=== PATIENT | female | born 1950 | race Caucasian/White ===

== ENCOUNTER 2025-05-18 23:20 | Inpatient (IN) | payer MEDICARE, SELFPAY ==
--- NOTE | 2025-05-18 23:21 | EDNOTE_ITS ---
Neuro Symptoms Deficit-RME/HPI General Chief Complaint: Altered Mental Status Stated Complaint: STROKE Time Seen by Provider: 05/18/25 23:22 Arrival date/time: 05/18/25 23:20 Limitations: no limitations RME / HPI RME / HPI Narrative: Dr. Reed's Main ED Evaluation: 74yo female with a history of COPD, HTN BIBA from [facility] 6 presents to the ED for neurological symptoms. Patient was seen by me immediately upon arrival at 2316. Stroke alert initiated en route at 2313. Per EMS, daughter on scene reported the patient started being altered and having right-sided weakness at 1800 and was unable to answer questions appropriately. EMS denies any falls or injuries. Blood sugar en route was 141. Full ROS is unobtainable due to the patient's AMS. Related Data Allergies Allergy/AdvReac Type Severity Reaction Status Date / Time No Known Allergies Allergy Verified 05/19/25 01:23 Review of Systems Review of Systems ROS Unobtainable: unobtainable due to mental status ED Exam Narrative Physical exam: Initial exam completed while the patient was in ambulance bay. General Limitations: Present no limitations General appearance: Present in no apparent distress, obtunded and other (dissheveled) Head Head exam: Present atraumatic ENT ENT exam: Present normal exam, normal oropharynx and mucous membranes moist Neck Neck exam: Present normal inspection, full ROM and trachea midline Chest Chest inspection: Present normal inspection and symmetric chest wall rise Respiratory Respiratory exam: Present normal lung sounds bilaterally; Absent accessory muscle use Cardiovascular Cardiovascular exam: Present regular rate, normal rhythm and normal heart sounds Abdominal Exam Abdominal exam: Absent distention Neurological Exam Neurological exam: Present other (obtunded) Skin Skin exam: Present warm, dry, intact, normal color and other (vascular changes to the BLE) Course Quality Measures none Orders Category Date Time Status Bedside Blood Glucose NOW Care 05/18/25 23:23 Active Choker Setter NOW Care 05/18/25 23:23 Active Continuous Pulse Oximetry NOW Care 05/18/25 23:23 Completed EKG (ED ONLY) *Do not use* NOW Care 05/18/25 23:23 Completed In and Out Catheter NEEDED Care 05/18/25 23:23 Active Insert IV NOW Care 05/18/25 23:23 Active NIH Stroke Scale now Care 05/18/25 23:23 Active NPO NOW Care 05/18/25 23:23 Active Nurse Swallow Screen x1 Care 05/18/25 23:23 Active Consult to Neurology / Tele-Neurology Routine Cons 05/18/25 23:[address] angio stroke protocol Stat Exams 05/18/25 23:[address] stroke protocol Stat Exams 05/18/25 23:23 Completed EKG (ED Only) Stat Exams 05/18/25 23:23 Draft CBC Stat Lab 05/18/25 23:30 Completed Comprehensive Metabolic Panel Stat Lab 05/18/25 23:30 Completed Drug Screen,Urine Stat Lab 05/18/25 23:48 Completed HCG Titer if Positive Stat Lab 05/18/25 23:30 Completed Magnesium Stat Lab 05/18/25 23:30 Completed Partial Thromboplastin Time Stat Lab 05/18/25 23:30 Completed Prothrombin Time with INR Stat Lab 05/18/25 23:30 Completed Troponin I Stat Lab 05/18/25 23:30 Completed UA, C/S IF [Urinalysis, C/S if Indicated] Stat Lab 05/18/25 23:48 Completed Ondansetron Inj [Zofran Inj] Med 05/18/25 23:22 Pending 4 mg IVP Q4HR PRN Oxygen Delivery NOW RT 05/18/25 23:23 Active Vital Signs Vital signs: Vital Signs Temperature 98.7 F 05/18/25 23:54 Pulse Rate 77 05/18/25 23:54 Respiratory Rate 21 H 05/18/25 23:54 Blood Pressure 168/97 H 05/18/25 23:54 Pulse Oximetry (%) 96 05/18/25 23:54 Oxygen Delivery Method Nasal Cannula 05/18/25 23:54 Oxygen Flow Rate 2 05/18/25 23:54 Neuro Symptoms / Deficit MDM Narrative MDM Narrative:: On re-examination, patient is awake, alert, somewhat disoriented. She is now transferring herself from the rney to the bedside commode. Patient data External records reviewed:: [facility] previous records (Per chart review, patient has no previous ED visits or admissions to this facility.) and EMS form Clinical information provided by:: EMS Social determinants that could affect healthcare access:: none Patient has the following chronic illnesses:: HTN, COPD How is presenting disease/condition affected by chronic disease/condition?: uneffected by Evaluation data The following diagnostics were reviewed and interpreted by me:: lab results, radiology exam(s) and EKG tracing(s) Lab and/or radiology exams considered but not ordered:: none Interpretation Summary: CBC normal, PT/INR normal, PTT 37.2, Sodium 122, Glucose 138, Magnesium normal, Troponin normal, UA negative, UDS positive for opiates, HCG negative. EKG done at 1945, aFib, rate of 73, QTc: 401, no ST elevations or depressions, no previous EKG available for comparison, according to my interpretation. --------- [facility] Report Signed Patient: JOVANI SELLERS Birthday Gorilla. Record#: [id number] Birthdate: 1950 Age/Sex: 74 / F Location: [facility] Attending Dr: Ordering Physician: Zuleima Brito MD Date of Service: 05/18/25 Procedure(s): CT stroke protocol Accession Number(s): [id number] cc: Javier Scott MD; Zuleima Brito MD~ Examination: CT brain head without contrast. 2-D sagittal coronal reconstructions Date and time of exam:May 18, 2025 1125 hours INDICATIONS: Stroke alert, onset focal neurologic deficit today CTDI: vol (mGy):48.2 DLP: (mGycm):901 Technique: Multiple CT axial sections of the brain have been obtained, 5 mm slice thickness. Contrast has not been administered. 2-D sagittal, coronal reconstructions have been obtained Low dose protocols were performed. One or more of the following dose reduction techniques were used; automated exposure control, adjustment of the mA and/or KV according to patient size, use of iterative reconstruction technique. Findings: No significant ventricular enlargement. Intra-axial or extra-axial hemorrhage density is not seen. No mass effect or midline shift Basal cisterns are not remarkable. Fourth ventricle is midline. Cranial vault intact. Impression: Negative for acute hemorrhage, mass effect or midline shift Dictated By: Javier Scott MD Signed By: <Electronically signed by Javier Scott MD in OV> 05/18/25 2329 [place] Preliminary Report Draft Patient: JOVANI SELLERS Birthday Gorilla. Record#: [id number] Birthdate: 1950 Age/Sex: 74 / F Location: [facility] Attending Dr: Ordering Physician: Date of Service: Procedure(s): Accession Number(s): cc: ~ CT angiogram of the head and neck with intravenous contrast (axial sections with sagittal and coronal reformats) May 19, 2025 0008 hours Clinical History: Focal neuro deficit, stroke suspected Comparison: No prior study is available for comparison. Findings: Head: There are atheromatous wall calcifications in the cavernous segments of the bilateral internal carotid arteries causing no significant narrowing.The internal carotid, middle and anterior cerebral arteries are otherwise patent bilaterally. The intracranial vertebral arteries are patent. The vertebrobasilar junction, basilar and posterior cerebral arteries are patent. No evidence of large vessel occlusion, critical stenosis or aneurysm. Neck: The aorta and its branches demonstrate atheromatous calcifications. The aortic arch to the extent visualized as well as the origins of the right brachiocephalic, left common carotid, and left subclavian arteries are patent. There are calcified atheromatous plaques causing moderate stenosis of the proximal segment of the right internal carotid artery, measuring approximately 60% and mild stenosis of the proximal segment of the left internal carotid artery, measuring approximately 30%.The common carotid arteries, carotid bulbs, and external carotid arteries are patent. The origins of the vertebral arteries are unremarkable. The left vertebral artery is dominant. No evidence of vascular occlusion, critical stenosis, dissection or aneurysm. There is a peripherally enhancing hypodense nodule in the isthmus extending towards the right lobe of the thyroid, measuring 1.5 x 1 cm. There is a hypodense nodule with peripheral calcification in the right lobe of the thyroid, measuring 5 mm.The soft tissues of the neck are otherwise unremarkable. There are disc osteophyte complexes at multiple levels, most marked at the C5-C6 level, with associated uncinate hypertrophy and facet arthropathy, causing mild spinal canal narrowing and bilateral moderate to severe neural foraminal stenosis. Impression: Head: No evidence of large vessel occlusion, critical stenosis or aneurysm. Neck: Moderate stenosis of the proximal segment of the right internal carotid artery and mild stenosis of the proximal segment of the left internal carotid artery as described above. No evidence of dissection or aneurysm. Thyroid nodules as described above. Recommend further evaluation with sonography. Other findings as described above. Report Electronically Signed By: Brody Christian 05/19/2025 1:28:50 AM [EST] Medications / Prescriptions Medications or Prescriptions considered but not ordered:: none Medication administrations:: Medication Administration History Ondansetron HCl (Ondansetron Inj 2 Mg/Ml Inj 2 Ml) 4 mg IVP Q4HR PRN PRN Reason: NAUSEA OR VOMITING Stop: 06/17/25 23:21 see above Consultations Consultation(s) initiated? (list below): Yes Consultation #1 (Physician, Specialty, Details): Discussed case with Dr. Dash from teleneurology regarding consultation. Discussed patients ED course, exam findings, labs, and radiology results. Does not feel the patient has right-sided weakness and feels that both of the patient's legs are weak. Recommends working up the patient for metabolic pathology (UTI versus pneumonia). States they will call the daughter, then call me back to let me know if the patient needs CT angio head and neck. Time: 23:42 Consultation #2 (Physician, Specialty, Details): Discussed case with Dr. Dash from teleneurology regarding consultation. States he spoke with the patient's daughter and states the patient normally gets like this when she has a UTI or pneumonia. Despite this, the teleneurologist still recommends getting a CTA and admission for a stroke work-up. Time: 00:00 Consultation #3 (Physician, Specialty, Details): Discussed case with the resident physician, attending Dr. Dove from Hospitalist service regarding admission. Discussed patients ED course, exam findings, labs, and radiology results. The Hospitalist agrees to accept the patient for admission. Time: 01:35 Diagnosis Neuro Differential Diagnosis: cerebrovascular accident and other (electrolyte abnormality, drug use, PE, SIADH, sepsis) Most likely diagnosis given after review of the tests above:: hyponatremia, AMS Admission Indicated Admission indicated?: indicated Admission Request Was there a request for admission?: Yes Admission Attestation Admission request attestation: Discussed case with [] from Hospitalist service regarding admission. Discussed patients ED course, exam findings, labs, and radiology results. The Hospitalist [agrees,declines] to accept the patient for admission. Disposition Plan Disposition Plan: Admit Critical Care Time Critical Care Time Critical Care Time: Yes Total Critical Care Time (min.): 50 Attestation: The high probability of sudden, clinically significant deterioration in the patient?s condition required the highest level of my preparedness to intervene urgently. The services I provided to this patient were to treat and/or prevent clinically significant deterioration. Services included the following: chart data review, reviewing nursing notes and/or old charts, documentation time, data communications software consultant collaboration regarding findings and treatment options, medication orders and management, direct patient care, vital sign assessments and ordering, interpreting and reviewing diagnostic studies and lab tests. Aggregate critical care time includes only time during which I was engaged in work directly related to the patient?s care, as described above, whether at bedside or elsewhere in the Emergency Department. It did not include time spent performing other reported procedures or the services of residents, students, nurses or physician assistants. Discharge Plan Plan Patient Disposition: Admit Acute Care w/in Hospital Patient condition on transfer: Stable Prescriptions/Referrals Referrals: Carmen Harvey MD [Referring Provider] - In 1 week Problem List Clinical Impression: Hyponatremia, Altered mental status, Acute right-sided weakness Patient/Caregiver Discharge Instructions Print Language: Arabic Stand Alone Forms: [facility] Award Info., Patient Portal Info Letter
--- NOTE | 2025-05-18 23:23 | EKG_ITS ---
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
--- NOTE | 2025-05-18 23:23 | XR_ITS ---
Examination: CTA carotids with intravenous contrast CTA brain, head with intravenous contrast. 2-D sagittal, coronal reconstructions. 3-D reconstructions. Exam date and time: May 19, 2025 at 0008 hours INDICATIONS: Stroke alert today, onset focal neurologic deficit CTDI: vol (mGy) 11.3 DLP: (mGycm) 432. Technique: Multiple CTA axial brain, head carotid images post intravenous contrast injection 75 cc, [id number]. 2-D sagittal, coronal reconstructions. 3-D reconstructions, 3-D post processing including vascular maximum intensity projection images. Low dose protocols were performed. One or more of the following dose reduction techniques were used; automated exposure control, adjustment of the mA and/or KV according to patient size, use of iterative reconstruction technique. Findings: Bilateral thyroid nodules Heavy calcification right carotid bifurcation, 90% stenosis proximal right internal carotid artery, sagittal image 94 most severe 16 mm from the carotid bifurcation Significant calcification left carotid bifurcation, 60% stenosis left proximal internal carotid artery beginning 9 mm from the carotid bifurcation Dominant left vertebral artery with no critical stenoses No cerebral large vessel occlusions or thrombus IMPRESSION: 90% stenosis proximal right internal carotid artery. 60% stenosis proximal left internal carotid artery
[2025-05-18 23:25] VITALS: PULSE 74; O2SAT 97
[2025-05-18 23:54] VITALS: BP 168/97; PULSE 71; PULSE 77; RESP 21; TEMP 37.1; O2SAT 96
[2025-05-18 23:54] LABS: Basophils # (Auto) 0.0 Thou/mm3 (0.0-0.2); Basophils % (Auto) 0 % (0-2.5); Eosinophils # (Auto) 0.0 Thou/mm3 (0.0-0.5); Eosinophils % (Auto) 0 % (0-10); Hematocrit 34.5 % (36.0-46.0); Hemoglobin 11.7 g/dL (12.0-16.0); Immature Granulocytes Auto 0.05 Thou/mm3 (0.00-0.00); Lymphocytes # (Auto) 0.9 Thou/mm3 (1.0-4.8); Lymphocytes % (Auto) 11 % (10-50); Mean Corpuscular HGB Conc 33.9 g/dl (31.0-37.0); Mean Corpuscular Hemoglobin 31.5 pg (25.0-35.0); Mean Corpuscular Volume 93 fL (80-100); Monocytes # (Auto) 1.0 Thou/mm3 (0.0-0.8); Monocytes % (Auto) 12 % (0-12); Neutrophils # (Auto) 6.1 Thou/mm3 (1.8-7.7); Neutrophils % (Auto) 76 % (37-80); Nucleated Red Blood Cell # 0.00 Thou/mm3 (0.00-0.00); Nucleated Red Blood Cell % 0 /100 WBC (0); Platelet Count 208 Thou/mm3 (140-440); RDW Standard Deviation 46.4 fL (36.4-46.3); Red Blood Count 3.72 Miln/mm3 (4.00-5.20); White Blood Count 8.1 Thou/mm3 (3.6-11.0)
[2025-05-18 23:54] LABS: Collection Type, Urine Clean Catch
[2025-05-19] VITALS (15 sets, daily range): BP systolic 110–184; BP diastolic 67–103; PULSE 60–82; RESP 14–21; TEMP 36.4–37.2; O2SAT 95–100
--- NOTE | 2025-05-19 00:13 | ESCONSULT_ITS ---
Tele Neuro Consultation Consultation Date 05/19/25 Most Recent Vital Signs Last Vital Signs Temp 98.7 F 05/18/25 23:54 Pulse 71 05/18/25 23:54 Resp 21 H 05/18/25 23:54 BP 168/97 H 05/18/25 23:54 Pulse Ox 96 05/18/25 23:54 O2 Del Method Nasal Cannula 05/18/25 23:54 O2 Flow Rate 2 05/18/25 23:54 Consultation Narrative [facility] Patient Name:???Susan Sargent Date of :???1950 Identification Number:??? Date of Service:???05/18/2025 23:22:25 Diagnosis:?G93.49 - Encephalopathy Multifactorial Impression: ?The patient is 74 yo F with h/o HTN, COPD, afib on eliquis, who presents with progressive lethargy, generalized weakness, altered mental status in the setting of 2 days of productive coughing. She is very hypertensive and was hypoxic as well. On exam, she has drift in all extremities, and is slow to respond, dysoriented. CTH is negative for acute findings. Patient is outside the window for IV thrombolytics. I suspect acute encephalopathy due to infectious or metabolic causes, hypertensive encephalopathy or PRES also on differential. However will obtain stat CTA to rule out LVO. If CTA shows no LVO, will gradual reduce BP. Will hold eliquis pending further workup. Our recommendations are outlined below. Recommendations: ? Stroke/Telemetry Floor ? Neuro Checks (Q4) ? Bedside Swallow Eval ? DVT Prophylaxis ? IV Fluids, Normal Saline ? Head of Bed 30 Degrees ? Euglycemia and Avoid Hyperthermia (PRN Acetaminophen) ? Hold Anticoagulation for Now ?Please f/u CTA to rule out LVO. I will followup CTA results. However, if you receive a report that shows large vessel occlusion please call [facility] for a Dr to Dr camargo so I can help facilitate JOAQUIN consultation. ?If no LVO, then consider MRI brain if no other cause is found for encephalopathy. ?If no LVO, gradual reduction of BP is appropriate to a goal of 15% reduction in BP during the first 24 hours. ?Get WORKUP for TOXIC/METABOLIC/INFECTIOUS causes including UA, CXR, ammonia. Sign Out: ? Discussed with Emergency Department Provider Advanced Imaging: Advanced imaging has been ordered. Results pending. Metrics: Last Known Well: 05/18/2025 18:00:00 Dispatch Time: 05/18/2025 23:22:25 Arrival Time: 05/18/2025 23:20:00 Initial Response Time: 05/18/2025 23:22:25Symptoms: altered mental status. Initial patient interaction: 05/18/2025 23:28:00 NIHSS Assessment Completed: 05/18/2025 23:31:40Patient is not a candidate for Thrombolytic. Thrombolytic Medical Decision: 05/18/2025 23:32:30Patient was not deemed ca ndidate for Thrombolytic because of following reasons: LKW outside 4.[address] Head: I personally reviewed all the CT images that were available to me and it showed: No Acute Hemorrhage or Acute Core Infarct Primary Provider Notified of Diagnostic Impression and Management Plan on: 05/19/2025 00:03:13 History of Present Illness:Patient is a 74 year old Female. Patient was brought by EMS for symptoms of altered mental status. Patient is confused. History obtained per EMS and also per patient's daughter Diane who I spoke to on the phone ([phone]) She has been feeling like she was getting a cold the past couple days, coughing a lot of mucus. This afternoon, she would fall asleep, wake up but her eyes stayed closed and she was talking to family members who were no longer living. At times She could not recognize family, not answering questions. Family said LKW was around 1600. She also would get up and fall due to weakness. EMS said she had reduced cook roast on the R side. She was hypoxic, 80% room air. She has no h/o dementia. She drives and is usually quite active. In the past, She has had kidney infection which caused her to be very confused. She takes metoprolol. Past Medical History: ?Hypertension ?Atrial Fibrillation Other PMH:? COPD unable to obtain due to:?? Patient Is Confused Medications: Anticoagulant use:??Yes?eliquis No Antiplatelet use Reviewed EMR for current medications Allergies:? Reviewed Allergies Unable To Obtain Due To:?Patient Is Confused Social History: Unable To Obtain Due To Patient Status :?Patient Is Confused Family History: Family History Cannot Be Obtained Because:Patient Is Confused ROS :?ROS Cannot Be Obtained Because:? Patient Is Confused Past Surgical History: Past Surgical History Cannot Be Obtained Because: Patient Is Confused There Is No Surgical History Contributory To Today?s Visit Examination: BP(220/97),?Pulse(70),?Blood Glucose(141) 1A: Level of Consciousness - Arouses to minor stimulation?+ 1 1B: Ask Month and Age - 1 Question Right?+ 1 1C: Blink Eyes & Squeeze Hands - Performs Both Tasks?+ 0 2: Test Horizontal Extraocular Movements - Normal?+ 0 3: Test Visual Ulrich - No Visual Loss?+ 0 4: Test Facial Palsy (Use Grimace if Obtunded) - Normal symmetry?+ 0 5A: Test Left Arm Motor Drift - Drift, but doesn't hit bed?+ 1 5B: Test Right Arm Motor Drift - Drift, but doesn't hit bed?+ 1 6A: Test Left Leg Motor Drift - Drift, but doesn't hit bed?+ 1 6B: Test Right Leg Motor Drift - Drift, but doesn't hit bed?+ 1 7: Test Limb Ataxia (FNF/Heel-Luo) - No Ataxia?+ 0 8: Test Sensation - Normal; No sensory loss?+ 0 9: Test Language/Aphasia - Normal; No aphasia?+ 0 10: Test Dysarthria - Normal?+ 0 11: Test Extinction/Inattention - No abnormality?+ 0 NIHSS Score:?6 Pre-Morbid Modified [place] Scale:1 Points = No significant disability despite symptoms; able to carry out all usual duties and activities Spoke with :?Dr Brito This consult was conducted in real time using interactive audio and video [facility]. Patient was informed of the technology being used for this visit and agreed to proceed. Patient located in hospital and provider located at home/office setting. Patient is being evaluated for possible acute neurologic impairment and high probability of imminent or life-threatening deterioration. I spent total of 35 minutes providing care to this patient, including time for face to face visit via telemedicine, review of medical records, imaging studies and discussion of findings with providers, the patient and/or family. Dr Galen Dash [facility] For Inpatient follow-up with [facility] physician please call [facility] at . As we are not an outpatient service for any post hospital discharge needs please contact the hospital for assistance. If you have any questions for the [facility] physicians or need to reconsult for clinical or diagnostic changes please contact us via [facility] at .
[2025-05-19 00:18] LABS: Bilirubin,Urine Negative (Negative); Blood,Urine Negative (Negative); Clarity,Urine Clear (Clear/Hazy); Color,Urine Lt-Yellow (Lt Yel-Yel); Culture Indicated,Urine Not Indicated; Glucose, Urine Negative (Negative); Ketones,Urine Negative (Negative); Leukocyte Esterase,Urine Negative (Negative); Nitrite,Urine Negative (Negative); PH,Urine 6.5 (5.0-7.0); Protein,Urine Trace (Neg - Trace); RBC,Urine 1 /hpf (0-3); Specific Gravity,Urine 1.017 (1.001-1.035); Squamous Epithelial Cell,Urine < 1 /hpf (0-5); Urobilinogen,Urine Negative mg/dL (0.0-1.0); WBC,Urine < 1 /hpf (0-5)
[2025-05-19 00:21] LABS: INR 1.1 (0.9-1.3); Partial Thromboplastin Time 37.2 Seconds (22.0-36.0); Prothrombin Time 11.6 Seconds (9.0-12.2)
[2025-05-19 00:36] LABS: Amphetamine/Methamp Scrn,U Negative (Negative); Barbiturate Screen,Urine Negative (Negative); Benzodiazepines Screen,Urine Negative (Negative); Benzoylecgonine Screen, Ur Negative (Negative); Fentanyl Screen,Urine Negative (Negative); Opiate Screen,Urine Positive (Negative); THC Screen,Urine Negative (Negative)
[2025-05-19 00:38] LABS: Alanine Aminotransferase 12 U/L (10-49); Albumin, Serum 4.1 gm/dL (3.4-4.8); Albumin/Globulin Ratio 2.2 (1.2-2.2); Alkaline Phosphatase 81 U/L (46-116); Anion Gap 4 (7-16); Aspartate Amino Transferase 23 U/L (0-34); BUN/Creatinine Ratio 12 Ratio (12-20); Bilirubin,Total 0.4 mg/dL (0.3-1.2); Blood Urea Nitrogen 11 mg/dL (9-23); Calcium 9.7 mg/dL (8.3-10.6); Calcium (Corrected) 9.7 mg/dL (8.5-10.1); Carbon Dioxide 30.4 mMol/L (20.0-31.0); Chloride 88 mMol/L (98-107); Creatinine (Component) 0.9 mg/dL (0.6-1.3); Globulin 1.9 gm/dL (2.3-3.5); Glucose 138 mg/dL (74-106); Magnesium 1.6 mg/dL (1.6-2.6); Osmolality,Calculated 247 (275-295); Potassium 4.9 mMol/L (3.4-5.1); Sodium 122 mMol/L (136-145); Total Protein 6.0 gm/dL (5.7-8.2); Troponin I 0.044 ng/mL (0.0-0.045); eGFR > 60 See Note
[2025-05-19 00:46] LABS: HCG Titer if Positive Negative
--- NOTE | 2025-05-19 01:29 | PRELIM_ITS ---
CT angiogram of the head and neck with intravenous contrast (axial sections with sagittal and coronal reformats) May 19, 2025 0008 hours Clinical History: Focal neuro deficit, stroke suspected Comparison: No prior study is available for comparison. Findings: Head: There are atheromatous wall calcifications in the cavernous segments of the bilateral internal carotid arteries causing no significant narrowing.The internal carotid, middle and anterior cerebral arteries are otherwise patent bilaterally. The intracranial vertebral arteries are patent. The vertebrobasilar junction, basilar and posterior cerebral arteries are patent. No evidence of large vessel occlusion, critical stenosis or aneurysm. Neck: The aorta and its branches demonstrate atheromatous calcifications. The aortic arch to the extent visualized as well as the origins of the right brachiocephalic, left common carotid, and left subclavian arteries are patent. There are calcified atheromatous plaques causing moderate stenosis of the proximal segment of the right internal carotid artery, measuring approximately 60% and mild stenosis of the proximal segment of the left internal carotid artery, measuring approximately 30%.The common carotid arteries, carotid bulbs, and external carotid arteries are patent. The origins of the vertebral arteries are unremarkable. The left vertebral artery is dominant. No evidence of vascular occlusion, critical stenosis, dissection or aneurysm. There is a peripherally enhancing hypodense nodule in the isthmus extending towards the right lobe of the thyroid, measuring 1.5 x 1 cm. There is a hypodense nodule with peripheral calcification in the right lobe of the thyroid, measuring 5 mm.The soft tissues of the neck are otherwise unremarkable. There are disc osteophyte complexes at multiple levels, most marked at the C5- C6 level, with associated uncinate hypertrophy and facet arthropathy, causing mild spinal canal narrowing and bilateral moderate to severe neural foraminal stenosis. Impression: Head: No evidence of large vessel occlusion, critical stenosis or aneurysm. Neck: Moderate stenosis of the proximal segment of the right internal carotid artery and mild stenosis of the proximal segment of the left internal carotid artery as described above. No evidence of dissection or aneurysm. Thyroid nodules as described above. Recommend further evaluation with sonography. Other findings as described above. Report Electronically Signed By: Brody Christian 05/19/2025 1:28:50 AM [EST]
--- NOTE | 2025-05-19 02:11 | XR_ITS ---
Examination: AP chest single view TECHNIQUE: Portable AP sitting chest single view Date and time: May 19, 2025 0228 hours INDICATIONS: Shortness of breath today. FINDINGS: Normal heart size. No pneumonia or pulmonary edema. The osseous structures are intact IMPRESSION: No active disease
--- NOTE | 2025-05-19 02:15 | ESHP_ITS ---
Documentation for date of: 05/19/25 HPI History of Present Illness Chief complaint: Confusion History of present illness: 74-year-old female with past medical history of atrial fibrillation on flecainide, metoprolol and Eliquis, asthma presenting to the ED from home with confusion which started earlier in the day. Patient states that she was at her usual baseline when earlier in the day she started developing increased confusion. Patient currently lives with his son; however, was staying temporarily with granddaughter and granddaughter's children in a motel due to some social issues (granddaughter in an abusive relationship). Patient also states that for the past week or so she has been having some subjective fevers although no temperature noted. Patient denies any sick contacts, recent travel or any other concerning symptoms. Patient states that she follows up with a neuropsychology service director in [place] but unsure exactly of name at this time. She last took Eliquis earlier in the day and mentions how she has ecchymosis noted throughout her upper and lower extremities. Medical history: As stated above Surgical history: Denies Allergies: NKDA Medications: Flecainide, metoprolol succinate, Eliquis, pending official med rec Family history: Noncontributory Social history: Patient lives in [place] with son, [id number] smoking history, denies any alcohol or illicit drug use. ROS: All 12 systems assessed and the patient denies unless otherwise stated in HPI In the ED, patient presented confused, vitals showed hypertension with 116/97, heart rate 77, respiratory 21, temperature afebrile saturating 96 on 2 L nasal cannula. Pertinent lab findings included WBC 8.1, hemoglobin 11.7 with MCV of 93, sodium 122, potassium 4.9, chloride 88, creatinine 0.9, BUN 11, troponin 0.044, magnesium 1.6, ammonia pending. Urinalysis negative for any signs of infection. U tox positive for opiates. Head CT negative for any acute process, head CTA pending. EKG showed atrial fibrillation with low QRS voltage in precordial leads. Patient will be admitted for acute encephalopathy likely secondary to hyponatremia from possible infectious source versus multifocal neoplastic, medication, tea and toast diet. Exam Vital Signs Temp Pulse Resp BP Pulse Ox O2 Del Method O2 Flow Rate 98.7 F 71 21 H 168/97 H 96 Nasal Cannula 2 05/18/25 23:54 05/18/25 23:54 05/18/25 23:54 05/18/25 23:54 05/18/25 23:54 05/18/25 23:54 05/18/25 23:54 Narrative Exam Physical Exam: GENERAL: Awake, answers questions appropriately, appears stated age, frail- appearing HEENT: NC/AT. Moist mucosa. PERRLA/EOMI. CARDIO: Heart RRR, no obvious murmurs, no JVD. PULM: Productive cough but no visible signs of shortness of breath. Bilateral rhonchi noted on upper lobes GI: Abdomen soft, NT/ND, +BS. SKIN/MSK/EXT: Ecchymosis noted on bilateral extremities. Nonpitting edema on bilateral lower extremities. No wounds/discoloration/rashes/amputations. +Pedal pulses present B/L. NEURO: Oriented x3, Moves extremities x4, CN 2-12 grossly intact, no focal neurological deficits Results: Labs 05/19/25 02:57 05/19/25 02:57 Labs: Short CBC 05/18/25 Range/Units 23:30 WBC 8.1 (3.6-11.0) Thou/mm3 Hgb 11.7 L (12.0-16.0) g/dL Hct 34.5 L (36.0-46.0) % Plt Count 208 (140-440) Thou/mm3 BMP 05/18/25 23:30 Sodium 122 L Potassium 4.9 Chloride 88 L Carbon Dioxide 30.4 BUN 11 Creatinine 0.9 Glucose 138 H Calcium 9.7 Cardiac Enzymes 05/18/25 Range/Units 23:30 Troponin I 0.044 (0.0-0.045) ng/mL Liver Function 05/18/25 Range/Units 23:30 Total Bilirubin 0.4 (0.3-1.2) mg/dL AST 23 (0-34) U/L ALT 12 (10-49) U/L Alkaline Phosphatase 81 (46-116) U/L Albumin 4.1 (3.4-4.8) gm/dL Urine 05/18/25 Range/Units 23:48 Urine Color Lt-Yellow (Lt Yel-Yel) Urine Clarity Clear (Clear/Hazy) Urine pH 6.5 (5.0-7.0) Ur Specific [place] 1.017 (1.001-1.035) Urine Protein Trace (Neg - Trace) Urine Glucose (UA) Negative (Negative) Quality Measures Quality Measures none Advance care planning discussed with:: patient Medications Home Medications and Allergies Allergies Allergy/AdvReac Type Severity Reaction Status Date / Time No Known Allergies Allergy Verified 05/19/25 01:23 Visit Medications Acetaminophen (Acetaminophen 325 Mg Tablet) 650 mg PO Q6H PRN PRN Reason: Pain 1-3 and/or Fever >100.1 Stop: 06/18/25 02:10 Heparin Sodium (Porcine) (Heparin Sod Inj 5000 Unit/Ml Vial) 5,000 unit SC Q12HR NILS Stop: 06/02/25 08:59 Ondansetron HCl (Ondansetron Inj 2 Mg/Ml Inj 2 Ml) 4 mg IVP Q4HR PRN PRN Reason: NAUSEA OR VOMITING Stop: 06/17/25 23:21 Assessment & Plan Plan 74-year-old female with past medical history of atrial fibrillation on flecainide, metoprolol and Eliquis, asthma presenting to the ED from home with confusion which started earlier in the day will be admitted for acute encephalopathy likely secondary to hyponatremia from possible infectious source versus multifocal neoplastic, medication, tea and toast diet. #Acute encephalopathy Differentials include: Stroke/TIA, hyponatremia, seizure less likely, multifocal including infectious source, metabolic As stated above, patient is presenting with confusion ongoing for about 1 day, unsure exact change in mentation Currently on exam, patient is answering questions appropriately and does not have any neurologic deficits as noted above in physical exam In the ED, teleneurology was consulted Ammonia pending. Urinalysis negative for any signs of infection. U tox positive for opiates. Head CT negative for any acute process, head CTA pending. Plan: Teleneurologist consulted, appreciate recommendations CTA head and neck pending, if LVO present to follow-up on recommendations Aspiration precautions Head of bed greater than 30 Temperature control Euglycemic ECHO w/ bubble study If no LVO, then consider MRI brain if no other cause is found for encephalopathy. If no LVO, gradual reduction of BP is appropriate to a goal of 15% reduction in BP during the first 24 hours. #Hyponatremia Possibly symptomatic as noted above, sodium of 122 Differentials include: SIADH, paraneoplastic syndrome, medication induced flecainide, tea and toast diet Patient does state that this has happened to her before in the past Denies any new medications or changes in water intake Plan: Fluid restriction 1800 mL Urine electrolytes Monitor with morning labs #Atrial fibrillation CHADVASc of 2-3 (depending on pending studies) EKG showed atrial fibrillation with low QRS voltage in precordial leads. Patient is on flecainide, metoprolol succinate and Eliquis Plan: Will hold anticoagulation as per teleneurology consultation Will continue flecainide Will hold metoprolol due to blood pressure control as noted above Follow-up on A1c, TSH #Asthma Patient apparently on some inhaler; pending med rec On exam has rhonci, no wheezing Plan: Xopenex 0.63 INH Q8h #Normocytic Anemia Differentials include: AOCD, ANGE, Vitamin deficiency, less likely to be hemolytic anemia or myelosuppression Plan: Follow-up on iron panel, ferritin, retic count Health Maintenance: Lines: PIV Diet: Cardiac Bowel: Senna GI prophylaxis: Not needed DVT prophylaxis: SCD Dispo: Pending workup for acute encephalopathy Code: Full Patient seen and assessed with attending Dr. Jordan Dhillon, DO PGY-2 Internal Medicine - [facility] Attending Provider Attestation/Addendum 74-year-old female with atrial fibrillation admitted for acute encephalopathy secondary to hyponatremia. CT of the brain is negative. Teleneurology was consulted. Consider MRI for persistent symptoms. Patient is a chronic smoker. Chest x-ray showed no mass. WBC count 6.8 Hemoglobin 11.7; consider further chest imaging to rule out tumor. I discussed with and supervised the resident physician who took care of this patient. I agree with the assessment and plan as above.
[2025-05-19] MEDS: LEVALBUTEROL RT 0.63 MG/3 ML NEBU INH ×3 (03:00→15:27)
[2025-05-19 03:08] LABS: Basophils # (Auto) 0.0 Thou/mm3 (0.0-0.2); Basophils % (Auto) 0 % (0-2.5); Eosinophils # (Auto) 0.0 Thou/mm3 (0.0-0.5); Eosinophils % (Auto) 0 % (0-10); Hematocrit 34.1 % (36.0-46.0); Hemoglobin 11.7 g/dL (12.0-16.0); Immature Granulocytes Auto 0.03 Thou/mm3 (0.00-0.00); Lymphocytes # (Auto) 1.0 Thou/mm3 (1.0-4.8); Lymphocytes % (Auto) 14 % (10-50); Mean Corpuscular HGB Conc 34.3 g/dl (31.0-37.0); Mean Corpuscular Hemoglobin 31.7 pg (25.0-35.0); Mean Corpuscular Volume 92 fL (80-100); Monocytes # (Auto) 0.8 Thou/mm3 (0.0-0.8); Monocytes % (Auto) 12 % (0-12); Neutrophils # (Auto) 5.0 Thou/mm3 (1.8-7.7); Neutrophils % (Auto) 74 % (37-80); Nucleated Red Blood Cell # 0.00 Thou/mm3 (0.00-0.00); Nucleated Red Blood Cell % 0 /100 WBC (0); Platelet Count 173 Thou/mm3 (140-440); RDW Standard Deviation 45.4 fL (36.4-46.3); Red Blood Count 3.69 Miln/mm3 (4.00-5.20); White Blood Count 6.8 Thou/mm3 (3.6-11.0)
[2025-05-19 03:26] LABS: Glucose Estimated Average 88 mg/dL (80-131); Hemoglobin A1C 4.7 % Hgb (4.8-6.0)
[2025-05-19] MEDS: Magnesium Sulfate 4 GM Ivpb 4 GM/50 ML BAG IV (03:42)
[2025-05-19 04:00] LABS: Ammonia < 10 uMol/L (11-32)
[2025-05-19 04:05] LABS: Ferritin 93 ng/mL (7.3-270.7); Iron 35 mcg/dL (50-170); Percent Iron Saturation 10 % (20-55); Total Iron Binding Capacity 339 mcg/dL (250-425); Unsaturated Iron Binding 304 (225-295)
[2025-05-19 04:09] LABS: Chloride,Urine Random 57.8 mMol/L (55.0-125.0); Creatinine,Random Urine 70 mg/dL (30-125); Potassium,Urine Random 47 mMol/L (12-62); Sodium,Urine Random 28.3 mMol/L (20.0-110.0)
[2025-05-19 04:27] LABS: Alanine Aminotransferase 16 U/L (10-49); Albumin, Serum 3.7 gm/dL (3.4-4.8); Albumin/Globulin Ratio 2.2 (1.2-2.2); Alkaline Phosphatase 79 U/L (46-116); Anion Gap 6 (7-16); Aspartate Amino Transferase 26 U/L (0-34); BUN/Creatinine Ratio 14 Ratio (12-20); Bilirubin,Total 0.3 mg/dL (0.3-1.2); Blood Urea Nitrogen 11 mg/dL (9-23); Calcium 8.9 mg/dL (8.3-10.6); Calcium (Corrected) 9.1 mg/dL (8.5-10.1); Carbon Dioxide 30.6 mMol/L (20.0-31.0); Chloride 93 mMol/L (98-107); Creatinine (Component) 0.8 mg/dL (0.6-1.3); Globulin 1.7 gm/dL (2.3-3.5); Glucose 106 mg/dL (74-106); Magnesium 1.8 mg/dL (1.6-2.6); Osmolality,Calculated 260 (275-295); Phosphorous 3.3 mg/dL (2.4-5.1); Potassium 5.1 mMol/L (3.4-5.1); Sodium 130 mMol/L (136-145); Thyroid Stimulating Hormone 0.45 uIU/mL (0.55-4.78); Total Protein 5.4 gm/dL (5.7-8.2); eGFR > 60 See Note
[2025-05-19] MEDS: SODIUM CHLORIDE RT 10% 15 ML NEBU 5 ML INH (04:40)
--- NOTE | 2025-05-19 04:47 | PC.RT ---
Sputum induction attempted at this time. Pt was unable to produce specimen.
[2025-05-19] MEDS: APIXABAN 2.5 MG TABLET 5 MG PO (08:57)
--- NOTE | 2025-05-19 09:29 | PD.RESPRO ---
Documentation for date of: 05/19/25 Exam Vital Signs Temp Pulse Resp BP Pulse Ox O2 Del Method O2 Flow Rate 98.7 F 73 21 H 153/84 H 96 Nasal Cannula 3 05/19/25 08:15 05/19/25 08:15 05/19/25 08:15 05/19/25 08:15 05/19/25 08:15 05/19/25 08:15 05/19/25 08:15 Objective Labs 05/19/25 02:57 05/19/25 02:57 Labs: Laboratory Results - last 24 hr 05/18/25 05/18/25 05/19/25 23:30 23:48 02:57 WBC 8.1 6.8 RBC 3.72 L 3.69 L Hgb 11.7 L 11.7 L Hct 34.5 L 34.1 L MCV 93 92 MCH 31.5 31.7 MCHC 33.9 34.3 RDW Std Deviation 46.4 H 45.4 Plt Count 208 173 D Neut % (Auto) 76 74 Lymph % (Auto) 11 14 [place] % (Auto) 12 12 Eos % (Auto) 0 0 Baso % (Auto) 0 0 Neut # (Auto) 6.1 5.0 Lymph # (Auto) 0.9 L 1.0 [place] # (Auto) 1.0 H 0.8 Eos # (Auto) 0.0 0.0 Baso # (Auto) 0.0 0.0 Immature Gran # (Auto) 0.05 H 0.03 H Absolute Nucleated RBC 0.00 0.00 Immature Gran % 1 H 0 Nucleated RBC % 0 0 PT 11.6 INR 1.1 APTT 37.2 H Sodium 122 L 130 L Potassium 4.9 5.1 Chloride 88 L 93 L Carbon Dioxide 30.4 30.6 Anion Gap 4 L 6 L BUN 11 11 Creatinine 0.9 0.8 Estim Creat Clear Calc Not Performed. Not Performed. eGFR > 60 > 60 BUN/Creatinine Ratio 12 14 Glucose [address] Glu mg/dL 88 Hemoglobin A1c 4.7 L Calculated Osmolality 247 L 260 L Calcium 9.7 8.9 Corrected Calcium 9.7 9.1 Phosphorus 3.3 Magnesium 1.6 1.8 Iron 35 L TIBC 339 Iron Saturation 10 L Unsat Iron Binding 304 H Ferritin 93 Total Bilirubin 0.4 0.3 AST 23 26 ALT 12 16 Alkaline Phosphatase 81 79 Ammonia < 10 L Troponin I 0.044 Total Protein 6.0 5.4 L Albumin 4.1 3.7 Globulin 1.9 L 1.7 L Albumin/Globulin Ratio 2.2 2.2 TSH 0.45 L Ur Collection Type Clean Catch Urine Color Lt-Yellow Urine Clarity Clear Urine pH 6.5 Ur Specific [place] 1.017 Urine Protein Trace Urine Glucose (UA) Negative Urine Ketones Negative Urine Blood Negative Urine Nitrite Negative Urine Bilirubin Negative Urine Urobilinogen (Auto) Negative Ur Leukocyte Esterase Negative Urine RBC 1 Urine WBC < 1 Ur Squamous Epith Cells < 1 Urine Bacteria None Ur Culture Indicated? Not Indicated Ur Random Creatinine 70 Ur Random Sodium 28.3 Ur Random Potassium 47 Ur Random Chloride 57.8 Urine Opiates Screen Positive A Urine Fentanyl Screen Negative Ur Barbiturates Screen Negative U Amphetamin/Meth Scrn Negative U Benzodiazepines Scrn Negative U Cocaine Metab Screen Negative U Marijuana (THC) Screen Negative HCG (Qual) Negative Quality Measures Quality Measures none Assessment & Plan Assessment Current Active Medications: Generic Name Dose Route Start Last Admin Trade Name Freq PRN Reason Stop Dose Admin Acetaminophen 650 mg 05/19/25 02:11 Acetaminophen 325 Mg Tablet PO 06/18/25 02:10 Q6H PRN Pain 1-3 and/or Fever >100.1 Apixaban 5 mg 05/19/25 09:00 05/19/25 08:57 Apixaban 2.5 Mg Tablet PO 06/18/25 08:59 5 mg BID NILS Administration Aspirin 81 mg 05/19/25 10:00 05/19/25 09:00 Aspirin Ec 81 Mg Tabec PO 06/18/25 09:59 Not Given QDAY [facility] Atorvastatin Calcium 40 mg 05/19/25 21:00 Atorvastatin Calcium 20 Mg Tablet PO 06/18/25 20:59 HS NILS Dextrose 25 ml 05/19/25 02:26 Dextrose 50%-Water Inj 50 Ml Syringe IV 06/18/25 02:25 Q15MIN PRN BG 50-70 responsive npo pt Dextrose 50 ml 05/19/25 02:26 Dextrose 50%-Water Inj 50 Ml Syringe IV 06/18/25 02:25 Q15MIN PRN BG <50 OR BG <70 & pt unresponsive Flecainide Acetate 100 mg 05/19/25 09:00 Flecainide Acet 50 Mg Tablet PO 06/18/25 08:59 BID NILS Glucagon 1 mg 05/19/25 02:26 Glucagon Inj 1 Mg Vial IM Q15MIN PRN BG <70, and no IV access Insulin Human Lispro 0 unit 05/19/25 07:30 05/19/25 08:25 Insulin Lispro (Admelog) 1 Unit/0.01 Ml Unit SC 06/18/25 07:29 Not Given ACHS [facility] Protocol Levalbuterol HCl 0.63 mg 05/19/25 02:50 05/19/25 07:32 Levalbuterol Rt 0.63 Mg/3 Ml Nebu INH 06/18/25 02:49 0.63 mg Q8HR NILS Administration Ondansetron HCl 4 mg 05/18/25 23:22 Ondansetron Inj 2 Mg/Ml Inj 2 Ml IVP 06/17/25 23:21 Q4HR PRN NAUSEA OR VOMITING
[2025-05-19] MEDS: FLECAINIDE ACET 50 MG TABLET 100 MG PO (09:32)
[2025-05-19] MEDS: ASPIRIN EC 81 MG TABEC PO (11:03)
--- NOTE | 2025-05-19 11:16 | PC.CC ---
Patient is a 74 year-old female who presents to the hospital for Acute Encephalopathy. Christine MA made [id number] contact with patient. ASW introduced self, role, and reason for visit. Patient appeared alert and oriented to self, location, and situation. Patient was pleasant and engaged in initial assessment. Patient confirmed information on the demographics and reports to living with her son, Nathan Sargent . Patient reports that her medical decision maker in the event she is unable to make her own medical decisions is her son Nathan. At home patient reports that patient is able to ambulate independently and complete her own ADLs. Patient does not require the use of any DME. Patient reports the only thing she uses is an inhaler. Her primary provider is Rafiq Harvey. Patient's pharmacy is [facility] in [place]. Upon discharge patient plans to return back home with her son. workforce services representative to follow up with any discharge need.
[2025-05-19 11:24] LABS: Albumin, Serum 3.8 gm/dL (3.4-4.8); Anion Gap 3 (7-16); BUN/Creatinine Ratio 11 Ratio (12-20); Blood Urea Nitrogen 8 mg/dL (9-23); Calcium 9.3 mg/dL (8.3-10.6); Calcium (Corrected) 9.5 mg/dL (8.5-10.1); Carbon Dioxide 33.2 mMol/L (20.0-31.0); Chloride 96 mMol/L (98-107); Creatinine (Component) 0.7 mg/dL (0.6-1.3); Glucose 118 mg/dL (74-106); Osmolality,Calculated 263 (275-295); Phosphorous 2.8 mg/dL (2.4-5.1); Potassium 4.2 mMol/L (3.4-5.1); Sodium 132 mMol/L (136-145); eGFR > 60 See Note
[2025-05-19 13:56] LABS: Sodium 133 mMol/L (136-145)
--- NOTE | 2025-05-19 14:45 | ESPR_ITS ---
<Statement entered by No Mcmillan MD - 05/26/25 14:54> I reviewed above note and agree with findings and plans. I have also personally examined the patient with medicine team and went over assessment and plan with medical team including mechanical intern and resident physician. Documentation for date of: 05/19/25 Senior resident attestation: Patient evaluated bedside, awake and alert at the time of evaluation, mental status back to baseline, daughter is present at the bedside, questions and concerns answered. Noted auto correction of serum sodium with only fluid restriction, serum sodium increased to 130, consulted nephrology, started D5W at 50 cc/h, later increased to 75 cc/h as sodium continued to uptrend, sodium 133, per nephrology recommendations, added DDAVP clamp?desmopressin 4 mcg x 1 and increased D5W to 125 cc/h, every 4 hours sodium checks added. Patient evaluated and examined at the bedside, plan of care discussed with rest of the team including my attending physician, except as noted. Quresh PGY3 Subjective Subjective Interval history: Patient was admitted earlier this morning. She seen and examined at bedside this AM in the ED. Nodding off/on, but arousable to verbal stimuli. Patient reports confusion since yesterday, nausea for the past few days, and productive cough for the past week. Denies sick contacts. Has been staying at motel with granddaughter and grandkids for the past week. No new meds. Had reaction to statins a month ago. Labs and vitals were reviewed. Sodium was 122 on admission, slowly improving. Potassium is 4.9 anion gap of 4. No further complaints at this time, denies chest pain, shortness of breath, dysuria. Review of systems otherwise negative except what is mentioned above. Exam Vital Signs Temp Pulse Resp BP Pulse Ox O2 Del Method O2 Flow Rate 97.6 F 80 18 135/80 H 98 Room Air 3 05/19/25 14:00 05/19/25 14:00 05/19/25 14:00 05/19/25 14:00 05/19/25 14:00 05/19/25 14:00 05/19/25 13:00 Narrative Exam Physical Exam General: Somnolent but arousable to verbal stimuli. In no acute distress. Able to hold short conversations before nodding off. HEENT: Normocephalic, atraumatic, mucous membranes moist. Heart: Bradycardic. Regular rate and rhythm, normal S1 and S2, no murmurs appreciated. Lungs: Productive cough. Rhonchi in upper lungs bilaterally. Abdomen: Soft, nondistended, nontender, positive bowel sounds. No guarding or rebound tenderness. Neurologic: Alert and oriented x3, no gross neurological deficit, and patient able to move all 4 extremities. Extremities: 1+ pitting edema in lower extremities bilaterally. Skin: Scattered patches of ecchymosis noted on bilateral forearms. No rash or ecchymoses. Objective Labs 05/19/25 02:57 05/19/25 17:37 Labs: Laboratory Results - last 24 hr 05/18/25 05/18/25 05/19/25 23:30 23:48 02:57 WBC 8.1 6.8 RBC 3.72 L 3.69 L Hgb 11.7 L 11.7 L Hct 34.5 L 34.1 L MCV 93 92 MCH 31.5 31.7 MCHC 33.9 34.3 RDW Std Deviation 46.4 H 45.4 Plt Count 208 173 D Neut % (Auto) 76 74 Lymph % (Auto) 11 14 [place] % (Auto) 12 12 Eos % (Auto) 0 0 Baso % (Auto) 0 0 Neut # (Auto) 6.1 5.0 Lymph # (Auto) 0.9 L 1.0 [place] # (Auto) 1.0 H 0.8 Eos # (Auto) 0.0 0.0 Baso # (Auto) 0.0 0.0 Immature Gran # (Auto) 0.05 H 0.03 H Absolute Nucleated RBC 0.00 0.00 Immature Gran % 1 H 0 Nucleated RBC % 0 0 PT 11.6 INR 1.1 APTT 37.2 H Sodium 122 L 130 L Potassium 4.9 5.1 Chloride 88 L 93 L Carbon Dioxide 30.4 30.6 Anion Gap 4 L 6 L BUN 11 11 Creatinine 0.9 0.8 Estim Creat Clear Calc Not Performed. Not Performed. eGFR > 60 > 60 BUN/Creatinine Ratio 12 14 Glucose [address] Glu mg/dL 88 Hemoglobin A1c 4.7 L Calculated Osmolality 247 L 260 L Calcium 9.7 8.9 Corrected Calcium 9.7 9.1 Phosphorus 3.3 Magnesium 1.6 1.8 Iron 35 L TIBC 339 Iron Saturation 10 L Unsat Iron Binding 304 H Ferritin 93 Total Bilirubin 0.4 0.3 AST 23 26 ALT 12 16 Alkaline Phosphatase 81 79 Ammonia < 10 L Troponin I 0.044 Total Protein 6.0 5.4 L Albumin 4.1 3.7 Globulin 1.9 L 1.7 L Albumin/Globulin Ratio 2.2 2.2 TSH 0.45 L Ur Collection Type Clean Catch Urine Color Lt-Yellow Urine Clarity Clear Urine pH 6.5 Ur Specific [place] 1.017 Urine Protein Trace Urine Glucose (UA) Negative Urine Ketones Negative Urine Blood Negative Urine Nitrite Negative Urine Bilirubin Negative Urine Urobilinogen (Auto) Negative Ur Leukocyte Esterase Negative Urine RBC 1 Urine WBC < 1 Ur Squamous Epith Cells < 1 Urine Bacteria None Ur Culture Indicated? Not Indicated Ur Random Creatinine 70 Ur Random Sodium 28.3 Ur Random Potassium 47 Ur Random Chloride 57.8 Urine Opiates Screen Positive A Urine Fentanyl Screen Negative Ur Barbiturates Screen Negative U Amphetamin/Meth Scrn Negative U Benzodiazepines Scrn Negative U Cocaine Metab Screen Negative U Marijuana (THC) Screen Negative HCG (Qual) Negative 05/19/25 05/19/25 10:55 13:30 WBC RBC Hgb Hct MCV MCH MCHC RDW Std Deviation Plt Count Neut % (Auto) Lymph % (Auto) [place] % (Auto) Eos % (Auto) Baso % (Auto) Neut # (Auto) Lymph # (Auto) [place] # (Auto) Eos # (Auto) Baso # (Auto) Immature Gran # (Auto) Absolute Nucleated RBC Immature Gran % Nucleated RBC % PT INR APTT Sodium 132 L 133 L Potassium 4.2 D Chloride 96 L Carbon Dioxide 33.2 H Anion Gap 3 L BUN 8 L Creatinine 0.7 Estim Creat Clear Calc Not Performed. eGFR > 60 BUN/Creatinine Ratio 11 L Glucose [address] Glu mg/dL Hemoglobin A1c Calculated Osmolality 263 L Calcium 9.3 Corrected Calcium 9.5 Phosphorus 2.8 Magnesium Iron TIBC Iron Saturation Unsat Iron Binding Ferritin Total Bilirubin AST ALT Alkaline Phosphatase Ammonia Troponin I Total Protein Albumin 3.8 Globulin Albumin/Globulin Ratio TSH Ur Collection Type Urine Color Urine Clarity Urine pH Ur Specific [place] Urine Protein Urine Glucose (UA) Urine Ketones Urine Blood Urine Nitrite Urine Bilirubin Urine Urobilinogen (Auto) Ur Leukocyte Esterase Urine RBC Urine WBC Ur Squamous Epith Cells Urine Bacteria Ur Culture Indicated? Ur Random Creatinine Ur Random Sodium Ur Random Potassium Ur Random Chloride Urine Opiates Screen Urine Fentanyl Screen Ur Barbiturates Screen U Amphetamin/Meth Scrn U Benzodiazepines Scrn U Cocaine Metab Screen U Marijuana (THC) Screen HCG (Qual) Quality Measures Quality Measures none Advance care planning discussed with:: patient Assessment & Plan Assessment Current Active Medications: Generic Name Dose Route Start Last Admin Trade Name Freq PRN Reason Stop Dose Admin Acetaminophen 650 mg 05/19/25 02:11 Acetaminophen 325 Mg Tablet PO 06/18/25 02:10 Q6H PRN Pain 1-3 and/or Fever >100.1 Apixaban 5 mg 05/19/25 09:00 05/19/25 08:57 Apixaban 2.5 Mg Tablet PO 06/18/25 08:59 5 mg BID NILS Administration Aspirin 81 mg 05/19/25 10:00 05/19/25 11:03 Aspirin Ec 81 Mg Tabec PO 06/18/25 09:59 81 mg QDAY NILS Administration Atorvastatin Calcium 40 mg 05/19/25 21:00 Atorvastatin Calcium 20 Mg Tablet PO 06/18/25 20:59 HS NILS Dextrose 25 ml 05/19/25 02:26 Dextrose 50%-Water Inj 50 Ml Syringe IV 06/18/25 02:25 Q15MIN PRN BG 50-70 responsive npo pt Dextrose 50 ml 05/19/25 02:26 Dextrose 50%-Water Inj 50 Ml Syringe IV 06/18/25 02:25 Q15MIN PRN BG <50 OR BG <70 & pt unresponsive Flecainide Acetate 100 mg 05/19/25 09:00 05/19/25 09:32 Flecainide Acet 50 Mg Tablet PO 06/18/25 08:59 100 mg BID NILS Administration Glucagon 1 mg 05/19/25 02:26 Glucagon Inj 1 Mg Vial IM Q15MIN PRN BG <70, and no IV access Dextrose 500 mls @ 75 mls/hr 05/19/25 14:41 D5w IV 06/18/25 14:40 .Q6H40M NILS Insulin Human Lispro 0 unit 05/19/25 07:30 05/19/25 13:02 Insulin Lispro (Admelog) 1 Unit/0.01 Ml Unit SC 06/18/25 07:29 Not Given ACHS NILS Protocol Levalbuterol HCl 0.63 mg 05/19/25 02:50 05/19/25 07:32 Levalbuterol Rt 0.63 Mg/3 Ml Nebu INH 06/18/25 02:49 0.63 mg Q8HR NILS Administration Ondansetron HCl 4 mg 05/18/25 23:22 Ondansetron Inj 2 Mg/Ml Inj 2 Ml IVP 06/17/25 23:21 Q4HR PRN NAUSEA OR VOMITING Plan Patient is a 74-year-old female with past medical history of atrial fibrillation and asthma presenting to the ED from [place] [address] for right-sided weakness and confusion since yesterday afternoon, admitted for acute encephalopathy likely secondary to hyponatremia, possibly combination of medication, tea and toast diet. Ruled out stroke. #Hyponatremia Likely secondary to medication (on Lasix) and poor diet. On arrival, sodium 122, increased to 132 in less than 24 hours despite fluid restriction. Per guidelines, recommended maximum sodium correction should be no more than 10-12 mEq/L within 24 hours or 18 mEq within 48 hours due to risk of osmotic demyelination syndrome. May be multifactorial, considering patient is taking Lasix and flecainide and has poor PO intake. Possible SIADH or paraneoplastic syndrome. Patient reports had similar episode of weakness in the past. No new medication. Plan: - Fluid restriction 1800 mL - Nephrology consulted, appreciate recommendations - D5W to control decrease in sodium levels within safe correction limit - Recommend sodium <130 for 24 hours - Desmopressin if sodium levels continue to rise - Renal panel q4hr #Acute encephalopathy Likely secondary to hyponatremia as above. Spoke to son Nathan, patient is usually conversational and independent. On exam, patient is answering questions appropriately. No neurological deficits noted on physical exam. Sodium 122. UA negative. U tox positive for opiates. In the ED, teleneurology was consulted. CT head negative for any acute process. 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 EKG shows atrial fibrillation. Chest x-ray is unremarkable. Plan: - Correct hyponatremia as above. - Monitor for signs of worsening on exam #Hypertension #Atrial fibrillation CHADVASc of 3-4 (unclear if patient has history of heart failure). She denies history of stroke and diabetes. EKG showed atrial fibrillation with low QRS voltage in precordial leads. Home meds include flecainide, Lasix, and Eliquis. Patient reports that she follows vocational nursing instructor Dr. Huston in [place]. Plan: - Continue home Eliquis and flecainide - Hold Lasix #Asthma Patient apparently on some inhaler; pending med rec. Patient has rhonchi, no wheezing. On 2L oxygen in the ED. Does not use oxygen at home. Has nebulizer but does not use often. Plan: - Continue Xopenex 0.63 INH Q8h #Normocytic Anemia Hgb 11.7. Differentials include: AOCD, ANGE, Vitamin deficiency, less likely to be hemolytic anemia or myelosuppression. Iron, iron saturation, and unsaturated iron binding are low, likely ANGE considering diet. No apparent active GI bleed. Plan: - Consider starting iron supplementation in outpatient setting Health Maintenance: Lines: PIV Diet: Cardiac Bowel: Senna GI prophylaxis: Not needed DVT prophylaxis: SCD Dispo: Correcting hyponatremia Code: Full Patient plan of care was discussed with the senior resident, Dr. Rodriguez, and attending physician, Dr. Mcmillan. Juana Crowell, PGY-1
[2025-05-19] MEDS: DEXTROSE 5%-WATER 500 ML 75 ML IV (15:18)
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
[2025-05-19] MEDS: DESMOPRESSIN ACETATE 4 MCG/ML VIAL SC (17:55)
[2025-05-19 18:10] LABS: Sodium 135 mMol/L (136-145)
[2025-05-19 18:56] LABS: Chloride,Urine Random < 20.0 mMol/L (55.0-125.0); Potassium,Urine Random < 10 mMol/L (12-62); Protein Total, Random Urine 19 mg/dL (1-14); Sodium,Urine Random < 15.0 mMol/L (20.0-110.0)
--- NOTE | 2025-05-19 20:03 | PC.NURSE ---
PT IS REQUESTING TO LEAVE. THIS RN CALLED DR. ORELLANA TO EXPLAIN SITUATION. THE PT IS FRUSTRATED WITH HER EXPERIENCE HERE. THIS RN LISTENED TO PTS CONCERNS AND SHE STILL WANTS TO LEAVE. DR. ORELLANA IS AT BEDSIDE TALKING TO PT
--- NOTE | 2025-05-19 20:12 | PD.RESEVENT ---
Documentation for date of: 05/19/25 Event Note Event Note: Called around 8:00PM on 05/19/2025 for Susan Sargent - 74 F who was admitted for initially symptomatic hyponatremia who is attempting to leave AMA. Patient seen and examined alert oriented x 3 and answering questions appropriately. Patient states that she would like to leave so that she can take care of her granddaughter; moreover, states that his son has been notified and will take her to a different hospital if needed. Explained to the patient that her situation is critical and we are monitoring her sodium levels. Patient made aware that fluctuating sodium levels can affect her mental status and her life could be at risk. Patient shows complete understanding but adamantly wants to leave. Attending notified regarding patient's decision; AMA paperwork signed. Jose Luis Dhillon, PGY-2 Internal Medicine - GME
--- NOTE | 2025-05-19 20:25 | PC.NURSE ---
PT REFUSED ALL CARE. PT REFUSED VITAL SIGNS. PT REMOVED RIGHT WRIST IV THAT HAD FLUIDS RUNNING. IV FLUIDS WERE STOPPED. IV SITE WAS ASSESSED. CMS INTACT. PT NOT REPORTING ANY PAIN AT SITE. PT IS LEAVING AMA. DR. PEREZ WAS CALLED. PROVIDER CAME TO BEDSIDE AND EXPLAINED + EDUCATED PT ON THE RISKS OF LEAVING. PT STILL WANTED TO LEAVE. AMA PAPER WAS SIGNED.
--- NOTE | 2025-05-20 08:50 | PD.RESPRO ---
Documentation for date of: 05/20/25 Exam Vital Signs Temp Pulse Resp BP Pulse Ox O2 Del Method O2 Flow Rate 97.7 F 69 16 178/88 H 97 Room Air 3 05/19/25 18:00 05/19/25 18:36 05/19/25 18:36 05/19/25 18:00 05/19/25 18:36 05/19/25 18:00 05/19/25 18:36 Objective Labs 05/19/25 02:57 05/19/25 17:37 Labs: Laboratory Results - last 24 hr 05/19/25 05/19/25 05/19/25 10:55 13:30 17:37 Sodium 132 L 133 L 135 L Potassium 4.2 D Chloride 96 L Carbon Dioxide 33.2 H Anion Gap 3 L BUN 8 L Creatinine 0.7 Estim Creat Clear Calc Not Performed. eGFR > 60 BUN/Creatinine Ratio 11 L Glucose 118 H Calculated Osmolality 263 L Calcium 9.3 Corrected Calcium 9.5 Phosphorus 2.8 Albumin 3.8 U Random Total Protein Ur Random Sodium Ur Random Potassium Ur Random Chloride 05/19/25 18:09 Sodium Potassium Chloride Carbon Dioxide Anion Gap BUN Creatinine Estim Creat Clear Calc eGFR BUN/Creatinine Ratio Glucose Calculated Osmolality Calcium Corrected Calcium Phosphorus Albumin U Random Total Protein 19 H Ur Random Sodium < 15.0 L Ur Random Potassium < 10 L Ur Random Chloride < 20.0 L Quality Measures Quality Measures none Assessment & Plan Assessment Current Active Medications: Generic Name Dose Route Start Last Admin Trade Name Freq PRN Reason Stop Dose Admin Acetaminophen 650 mg 05/19/25 02:11 Acetaminophen 325 Mg Tablet PO 06/18/25 02:10 Q6H PRN Pain 1-3 and/or Fever >100.1 Apixaban 5 mg 05/19/25 09:00 05/19/25 08:57 Apixaban 2.5 Mg Tablet PO 06/18/25 08:59 5 mg BID NILS Administration Aspirin 81 mg 05/19/25 10:00 05/19/25 11:03 Aspirin Ec 81 Mg Tabec PO 06/18/25 09:59 81 mg QDAY NILS Administration Atorvastatin Calcium 40 mg 05/19/25 21:00 Atorvastatin Calcium 20 Mg Tablet PO 06/18/25 20:59 HS NILS Dextrose 25 ml 05/19/25 02:26 Dextrose 50%-Water Inj 50 Ml Syringe IV 06/18/25 02:25 Q15MIN PRN BG 50-70 responsive npo pt Dextrose 50 ml 05/19/25 02:26 Dextrose 50%-Water Inj 50 Ml Syringe IV 06/18/25 02:25 Q15MIN PRN BG <50 OR BG <70 & pt unresponsive Flecainide Acetate 100 mg 05/19/25 09:00 05/19/25 09:32 Flecainide Acet 50 Mg Tablet PO 06/18/25 08:59 100 mg BID NILS Administration Glucagon 1 mg 05/19/25 02:26 Glucagon Inj 1 Mg Vial IM Q15MIN PRN BG <70, and no IV access Dextrose 500 mls @ 75 mls/hr 05/19/25 14:41 05/19/25 20:00 D5w IV 06/18/25 14:40 0 mls/hr .Q6H40M NILS Infusion Insulin Human Lispro 0 unit 05/19/25 07:30 05/19/25 17:48 Insulin Lispro (Admelog) 1 Unit/0.01 Ml Unit SC 06/18/25 07:29 Not Given ACHS [facility] Protocol Levalbuterol HCl 0.63 mg 05/19/25 02:50 05/19/25 15:27 Levalbuterol Rt 0.63 Mg/3 Ml Nebu INH 06/18/25 02:49 0.63 mg Q8HR NILS Administration Ondansetron HCl 4 mg 05/18/25 23:22 Ondansetron Inj 2 Mg/Ml Inj 2 Ml IVP 06/17/25 23:21 Q4HR PRN NAUSEA OR VOMITING
== END 2025-05-19 20:35 | disposition left against medical advice (07) | DRG 71 ==
LOC: SERX 05-19 01:17 → SERHOLD 05-19 02:23
PROVIDERS: Student in an Organized Health Care Education/Training Program; Admitting Provider Internal Medicine; Emergency Provider Emergency Medicine; PCP Internal Medicine; Visit Provider Internal Medicine
DX: G93.41 Metabolic encephalopathy (principal); E87.1 Hypo-osmolality and hyponatremia; I10 Essential (primary) hypertension; J44.9 Chronic obstructive pulmonary disease, unspecified; I48.91 Unspecified atrial fibrillation; J45.909 Unspecified asthma, uncomplicated; D64.9 Anemia, unspecified; F17.200 Nicotine dependence, unspecified, uncomplicated; I65.23 Occlusion and stenosis of bilateral carotid arteries; Z79.01 Long term (current) use of anticoagulants; Z53.29 Procedure and treatment not carried out because of patient's decision for other reasons
CPT/HCPCS: 36415; 70450; 70496; 70498; 71045; 80053; 80069; 80307; 81001; 82140; 82436; 82570; 82728; 83036; 83540; 83550; 83735; 84100; 84133; 84156; 84295; 84300; 84443; 84484; 84703; 85025; 85046; 85610; 85730; 87205; 89220; 93005; 94640; 96365; 96366; 96372; 99291; A4649; J2597; J3475; J7060; Q9967; A9270